=== PATIENT | female | born 1960 | race Caucasian/White ===

== ENCOUNTER → 2016-08-09 | Outpatient (CLI) | payer BC ==
[2016-08-09 09:13] LABS: Cholesterol 142 mg/dL (<200); HDL Cholesterol 62 mg/dL (40-60); Triglycerides 118 mg/dL (<150)
== END | disposition home or self-care (01) ==
LOC: LABWHC1 08:42
PROVIDERS: ATTEND Internal Medicine Cardiovascular Disease
DX: E78.5 Hyperlipidemia, unspecified (principal)
CPT/HCPCS: 36415; 80061

== ENCOUNTER → 2018-12-07 | Outpatient (CLI) | payer BC ==
--- NOTE | 2018-12-07 14:49 | US ---
EXAMINATION TYPE: US axilla RT DATE OF EXAM: 12/07/2018 COMPARISON: NONE CLINICAL HISTORY: R59.9 ENLARGED LYMPH NODES. TECHNIQUE/FINDINGS: Targeted right axillary ultrasound was performed in the area of palpable abnormality. Grayscale and c olor Doppler flow were utilized. No enlarged lymph nodes, no solid or masses seen. No soft tissue jerry ma. IMPRESSION: No right axillary adenopathy. No sonographic or to the patient's palpable abnormality.
--- NOTE | 2018-12-07 14:51 | US ---
EXAMINATION TYPE: US groin RT DATE OF EXAM: 12/07/2018 COMPARISON: NONE CLINICAL HISTORY: R10.30 Lower abd pain. Possible small hernia in right groin. This is appreciated on the Valsalva maneuver only with no adjac ent protruding bowel. Lymph node measuring 1.2cm also noted. This is morphologically normal with a fatty hilum and no corti daria thickening. This is also nonenlarged. IMPRESSION: There appears to be a very small focal right inguinal hernia on Valsalva maneuver. No pr otruding bowel is seen.
== END | disposition home or self-care (01) ==
LOC: RADUSWWP 13:28
PROVIDERS: ATTEND Family Medicine
DX: K40.90 Unilateral inguinal hernia, without obstruction or gangrene, not specified as recurrent (principal); R10.30 Lower abdominal pain, unspecified; R59.9 Enlarged lymph nodes, unspecified

== ENCOUNTER → 2019-12-03 | Outpatient (CLI) | payer BC ==
--- NOTE | 2019-12-03 16:28 | CT ---
EXAMINATION TYPE: CT abdomen pelvis w con DATE OF EXAM: 12/03/2019 COMPARISON: None HISTORY: Fecal urgency and abdominal distention. CT DLP: 542.3 mGycm CONTRAST: CT scan of the abdomen and pelvis is performed with Oral Contrast and with IV Contrast, patient injec iona with 100ml mL of Isovue 300. FINDINGS: LUNG BASES-: No visible nodule. No infiltrate. LIVER/GB: No calcified gallstones. No space occupying hepatic lesion. Biliary tree is of normal ca liber. PANCREAS: No inflammation. No distinct mass. SPLEEN: No splenic enlargement. No lesion seen. ADRENALS: No nodule. No thickening. KIDNEYS/BLADDER: No hydronephrosis. No nephrolithiasis. No distinct renal mass. Urinary bladder g rossly unremarkable. BOWEL: Normal appendix. Normal bowel caliber. No inflammation. GENITAL ORGANS: No gross abnormality. LYMPH NODES: No greater than 1cm abdominal or pelvic lymph nodes are appreciated. AORTA: No significant abnormality. OSSEOUS STRUCTURES: No significant abnormality is seen. OTHER: No significant additional abnormality is seen. IMPRESSION: 1. No significant abnormality to account for the patient's symptoms.
== END | disposition home or self-care (01) ==
LOC: RADCTMAIN 14:13
PROVIDERS: ATTEND Family Medicine
DX: K56.7 Ileus, unspecified (principal); R15.2 Fecal urgency
CPT/HCPCS: 74177; Q9967

== ENCOUNTER → 2022-01-03 | Outpatient (CLI) | payer BC ==
[2022-01-03 11:43] LABS: INR 1.1 (<1.2); Partial Thromboplastin Time 25.1 sec (22.0-30.0); Prothrombin Time 11.7 sec (9.0-12.0)
[2022-01-03 11:47] LABS: Appearance,Urine Clear (Clear); Bilirubin,Urine Negative (Negative); Blood,Urine Negative (Negative); Color,Urine Yellow; Glucose,Urine (UA) Negative (Negative); Hyaline Casts,Urine 3 /lpf (0-2); Ketones,Urine Negative (Negative); Leukocyte Esterase,Urine Small (Negative); Mucus,Urine Few /hpf; Nitrite,Urine Negative (Negative); Protein,Urine Trace (Negative); RBC,Urine 1 /hpf (0-5); Specific Gravity,Urine 1.031 (1.001-1.035); Squamous Epithelial Cell,Urine 3 /hpf (0-4); WBC,Urine 1 /hpf (0-5)
[2022-01-03 14:18] LABS: HGB 13.8 g/dL (12.0-15.0); MCH 29.6 pg (27.0-32.0); MCHC 31.4 g/dL (32.0-37.0); MCV 94.4 fL (80.0-97.0); Mean Platelet Volume 11.1 fL (9.5-12.2); NRBC Per 100 WBC 0 /100 WBCS (0.0-0.0); Platelet Count 295 X 10*3/uL (140-440); RBC 4.66 X 10*6/uL (4.10-5.20); RDW 12.4 % (11.5-14.5); WBC 5.82 X 10*3/uL (4.50-10.00)
[2022-01-03 14:19] LABS: African American GFR (CKD) 80.9 (60.0-200.0); Albumin 4.3 g/dL (3.8-4.9); Albumin/Globulin Ratio 1.43 (1.60-3.17); Anion Gap 9.4 mmol/L (10.00-18.00); BUN/Creat Ratio 16.63 Ratio (12.00-20.00); Calcium 9.5 mg/dL (8.7-10.3); Carbon Dioxide 26.1 mmol/L (20.0-27.5); Non-African American GFR(CKD) 69.8 (60.0-200.0); Potassium 4.9 mmol/L (3.5-5.5); Total Bilirubin 0.4 mg/dL (0.30-1.20); Total Protein 7.4 g/dL (6.2-8.2)
== END | disposition home or self-care (01) ==
LOC: LABPAT 10:24
PROVIDERS: ATTEND Orthopaedic Surgery
DX: Z01.812 Encounter for preprocedural laboratory examination (principal)
CPT/HCPCS: 36415; 80053; 81001; 85027; 85610; 85730; 87070

== ENCOUNTER 2022-01-15 09:57 | Observation (INO) | payer BC ==
[~2022-01-15 09:57] MED LIST: ACETAMINOPHEN TAB 500 MG TAB PO PRN; DEXAMETHASONE SOD PHOSPHATE 4 MG/ML 1 ML VIAL IV ONE; GABAPENTIN 300 MG CAP PO PRN; HYDROmorphone 0.5 MG/0.5 ML SYRINGE IVP PRN; LIDOCAINE 1% (10MG/ML) FOR IV START INTRADERMA PRN; MELOXICAM 7.5 MG TAB PO PRN; MIDAZOLAM 2 MG/2 ML VIAL IV PRN; ONDANSETRON 4 MG/2 ML VIAL IVP ONE; TRANEXAMIC ACID IN NACL,ISO-OS 1,000 MG in SALINE 1 100ML.BAG IVPB PRN
[2022-01-15] MEDS: LACTATED RINGERS 1,000 ML IV SCH (10:14)
[2022-01-15] MEDS ORDERED: ONDANSETRON 4 MG/2 ML VIAL IVP PRN (10:36)
[2022-01-15] MEDS ORDERED: hydrOXYzine pamoate 25 MG CAP PO PRN (10:36)
[2022-01-15] MEDS ORDERED: diazePAM 5 MG TAB PO PRN (10:36)
[2022-01-15] MEDS ORDERED: MAGNESIUM HYDROXIDE 2,400 MG/10 ML CUP PO PRN (10:36)
[2022-01-15] MEDS ORDERED: HYDROmorphone 0.5 MG/0.5 ML SYRINGE IVP PRN ×2 (10:36)
[2022-01-15] MEDS ORDERED: ACETAMINOPHEN TAB 325 MG TAB PO PRN (10:36)
[2022-01-15] MEDS ORDERED: NALOXONE 0.4 MG/ML 1 ML VIAL IV PRN (10:36)
[2022-01-15] MEDS ORDERED: TEMAZEPAM 15 MG CAP PO PRN (10:36)
[2022-01-15] MEDS ORDERED: HYDROcodone/APAP 5-325MG 1 EACH TAB PO PRN (10:36)
[2022-01-15] MEDS ORDERED: GLYCOPYRROLATE 0.2 MG/ML 2 ML VIAL ONE (10:51)
[2022-01-15] MEDS ORDERED: MIDAZOLAM 2 MG/2 ML VIAL ONE (10:51)
[2022-01-15] MEDS ORDERED: PROPOFOL 10 MG/ML 20 ML VIAL IV ONE (10:51)
[2022-01-15] MEDS ORDERED: TRANEXAMIC ACID IN NACL,ISO-OS 1,000 MG/100 ML BAG ONE (10:51)
[2022-01-15] MEDS ORDERED: fentaNYL (PF) 50 MCG/ML 2 ML AMP ONE (10:51)
[2022-01-15] MEDS ORDERED: PHENYLEPHRINE-0.9% NACL SYG 1,000 MCG/10 ML SYRINGE ONE (10:51)
[2022-01-15] MEDS ORDERED: ceFAZolin 1,000 MG in SODIUM CHLORIDE 0.9% 1,000 ML IRRIGATION ONE (10:55)
[2022-01-15] MEDS ORDERED: ROPIVACAINE 5 MG/ML 30 ML VIAL MISCELLANE ONE ×2 (11:35→12:30)
--- NOTE | 2022-01-15 12:41 | P.OP ---
Date of Procedure: 01/15/22 Preoperative Diagnosis: Severe osteoarthritis right hip Postoperative Diagnosis: Severe osteoarthritis right hip Procedure(s) Performed: Right total hip arthroplasty with a direct anterior approach Implants: [employer] Polarstem standard size 0 [employer] R3, 3 hole hemispherical acetabular shell, 48 mm [employer] Reflection 6.5 mm cancellus screw, 20 mm 2, 25 mm [employer] R3, XLPE 20 acetabular liner [employer] Oxinium femoral head 32 m, +0 All components were press-fit. The articulation is Oxinium on polyethylene. Anesthesia: spinal Surgeon: Sohail Ordonez Visual Education Teacher #1: Star Monteiro Estimated Blood Loss (ml): 300 Pathology: other (Femoral head) Condition: stable Disposition: PACU Indications for Procedure: After failure of conservative treatment we discussed the surgical and non surgical treatment options at length. Patient wishes to proceed with a total hip arthroplasty with a direct anterior approach. Complications specific to this procedure were discussed at length, including but not limited to infection, leg length discrepancy, dislocation, nerve injury, and fracture. Covid-19 was also discussed at length with the patient, and they are aware of the current policies and procedures. The patient was given the option of delaying surgery, but they elect to proceed knowing these risks. Patient is aware of all these complications and informed consent was obtained Operative Findings: The operative findings are consistent with severe osteoarthritis of the right hip Description of Procedure: Patient was seen and evaluated in the preoperative area and the consent was reviewed. The operative site was marked with a skin marker. The patient was then brought to the operating room and given preoperative antibiotics intravenously. 1 g of Tranexamic acid was also given intravenously. A spinal anesthetic was administered by the anesthesia department. The patient was then placed on the Blanchard table with the bony prominences well-padded. The hip area was then prepped with a ChloraPrep solution and draped in the usual sterile fashion. A universal timeout was then performed, which confirmed the patient's name, surgical site, ALLERGIES, and procedure being performed on the consent. Next the incision site was located at 1 cm distal and 2 cm lateral to the anterior superior iliac spine. The skin and subcutaneous tissues were sharply incised. Incision was carefully dissected down to the fascia overlying the tensor fascia mohsen muscle. This fascia was then incised in line with the incision. Care was taken to stay laterally in order to avoid injuring the lateral femoral cutaneous nerve. Next, using blunt finger dissection, the tensor fascia mohsen muscle was dissected off its investing fascia. The muscle was then carefully retracted laterally with a cobra retractor over the lateral neck of the femur. Next, the circumflex vessels were identified and cauterized using the AquaMantis device. The anterior hip capsule was then exposed. The capsule was then opened and an inverted T fashion. Cobra retractors were then placed intracapsularly. The retractors were maintained intracapsular throughout the procedure. The proximal femur was then visualized. Fluoroscopic x-rays were then taken in order to evaluate the preoperative leg lengths. A small amount of traction was placed on the leg. The femoral neck was then osteotomized at the appropriate level above the lesser trochanter. A small wedge of bone was then removed from the remaining femoral head. Next, using a corkscrew the femoral head was removed from the acetabulum. On gross visual inspection, the femoral head had complete loss of articular cartilage and multiple periarticular osteophytes. The femoral head was then measured. Attention was then turned to the acetabulum. The acetabulum was exposed and any remaining labrum was excised. Sequential reaming of the acetabulum was performed using fluoroscopic guidance until there was a good bed of bleeding cancellus bone. When the appropriate size was reached, a trial was then placed. The position and fit of the trial was checked with fluoroscopy. The trial was then removed. Then, using fluoroscopic guidance, the final implant was impacted at 20 of anteversion and 40 of abduction, and fully seated in the acetabulum. 2 screws were then placed in the acetabulum. Again fluoroscopy was used to check position of the screws. Next, the liner was then impacted, with a 20 elevated liner located in the anterior superior quadrant. Component locking was confirmed. Attention was then directed to the femur. With the aid of the Blanchard table, the femur was externally rotated to approximately 130, extended, and adducted under the opposite leg. A side hook was then placed under the proximal femur, and the side hook elevator was used to elevate the proximal femur while releasing the capsule. Retractors were then placed. A capsular release was performed, as well as a release of the conjoined tendon, which afforded excellent visualization of the proximal femur. Next, a box osteotome was used to lateralize the proximal femur. A reroller hand was then used to locate the femoral canal. Sequential broaching was then performed with appropriate size which afforded excellent fixation in the proximal femur. A trial was then placed with appropriate head and neck, and the hip was gently reduced with the aid of the Blanchard table. Fluoroscopy was then used to check position of the components, as well as to ensure equal leg lengths. The hip was then gently dislocated and the trials were then removed. Final implants were then impacted and the hip was again reduced. Final fluoroscopic x-rays confirmed that the components were in anatomic position, as well as equal leg lengths. The hip was also taken through range of motion, and found to be stable. The hip was then copiously irrigated with antibiotic solution with pulsatile lavage. The hip was then irrigated with Irrisept solution. The soft tissues were then injected with a ropivacaine solution. A second dose of 1 g of Tranexamic acid was also given intravenously. The fascia was then closed with 2-0 strata fix suture. The subcutaneous tissue was closed with 3-0 Vicryl. The subcuticular tissue was closed with 3-0 strata fix suture. The skin was then closed with Exofin skin glue. After the glue and dried, and Optifoam silver impregnated dressing was applied. The patient was then transferred to the recovery room in stable condition. The physician assistant surgery INES Allan was required due to the complexity of surgery, and the need for skilled surgical lead for positioning, draping, exposure, retraction, and closure of the wound.
[2022-01-15] MEDS ORDERED: LACTATED RINGERS 1,000 ML IV ONE (12:51)
--- NOTE | 2022-01-15 13:36 | XR ---
EXAMINATION TYPE: XR Hip Limited RT DATE OF EXAM: 01/15/2022 1:20 PM INDICATION: Patient age:Female; 61 years old; Reason for study: Status post hip surgery, assess surgical alignment; COMPARISON: None. TECHNIQUE: The right hip was examined in the frontal projections FINDINGS: Post right arthroplasty changes, hardware is intact, alignment is appropriate. No evidence of fracture. Postoperative changes soft tissue. No evidence of any acute osseous pathology or joint d islocation. IMPRESSION: Total hip arthroplasty with hardware intact and in appropriate alignment. No acute fracture.
--- NOTE | 2022-01-15 13:45 | FL ---
Fluoroscopy HISTORY: Anterior hip placement 53 seconds fluoroscopy time supplied to the referring clinician. 2 intraoperative C-arm images docum ent the procedure. See dictated report from orthopedic surgery.
[2022-01-15] MEDS ORDERED: NITROGLYCERIN SL TABS 0.4 MG TAB SUBLINGUAL PRN (14:21)
[2022-01-15] MEDS ORDERED: ZOLPIDEM 5 MG TAB PO PRN (14:21)
[2022-01-15] MEDS: MULTIVITAMINS, THERA 1 EACH TAB PO SCH (16:31)
[2022-01-15] MEDS: HYDROcodone/APAP 10-325MG 1 EACH TAB PO PRN ×2 (16:52→22:29)
[2022-01-15] MEDS: carvediloL 3.125 MG TAB PO SCH (16:54)
[2022-01-15] MEDS: HYDROmorphone 0.5 MG/0.5 ML SYRINGE IVP PRN (17:56)
[2022-01-15] MEDS: ASPIRIN 81 MG PO SCH (19:54)
[2022-01-15] MEDS: clonazePAM 1 MG TAB PO SCH (19:54)
[2022-01-15] MEDS ORDERED: SENNOSIDES-DOCUSATE SODIUM 1 EACH TAB PO SCH (21:00)
[2022-01-16] MEDS: HYDROmorphone 0.5 MG/0.5 ML SYRINGE IVP PRN (00:10)
--- NOTE | 2022-01-16 00:19 | CONS ---
CONSULTATION This consult is regarding CAD and other medical issues HISTORY OF PRESENT ILLNESS: A 61-year-old woman with past medical history of CAD stent, hypertension, hyperlipidemia, being followed by Dr. Page and previously underwent right total knee joint arthroplasty. The patient apparently accidentally caused right subconjunctival hemorrhage while removing the makeup on Friday. There is some minimal hemorrhage, which is stable and getting better according to her. There is no history of any fever, rigors, or chills at this time. PAST MEDICAL HISTORY: Reviewed and includes hypertension, hyperlipidemia, CAD, stent. HOME MEDICATIONS: Reviewed include Coreg, dose and rest of the medications are noted. ALLERGIES: SULFA. FAMILY HISTORY: History of myocardial infarction. SOCIAL HISTORY: No history of smoking, or occasional alcohol. REVIEW OF SYSTEMS: A 14-point review of systems is negative except as mentioned earlier. PHYSICAL EXAMINATION: VITAL SIGNS: Pulse is 56. Blood pressure 100/60, respirations 16. HEENT: Conjunctivae normal. NECK: No jugular venous distention. No carotid bruit. CARDIOVASCULAR: S1, S2 muffled. RESPIRATIONS: Breath sounds diminished at the bases. No rhonchi, no rales. ABDOMEN: Soft, nontender. LEGS: Status post surgery. NERVOUS SYSTEM: No focal deficits. LABS: Preop labs are reviewed. ASSESSMENT: 1. Status post right total hip joint arthroplasty. 2. Hypertension. 3. Hyperlipidemia. 4. Coronary artery disease, stent. 5. Multiple medical issues. 6. Minimal right subconjunctival hemorrhage. RECOMMENDATIONS: This 61-year-old woman presented, multiple medical issues. At this time, I recommended resuming the home medications and watch the subconjunctival hemorrhage for any evolution. Otherwise, continue with DVT prophylaxis, continue with the rest of medications. We will repeat labs tomorrow. The patient may be asked to follow up with Dr. Page and Cardiology closely after discharge. MMODL / IJN: [id number] / [facility]
[2022-01-16 02:14] VITALS: RESP 17
[2022-01-16] MEDS: LACTATED RINGERS 1,000 ML IV SCH (04:54)
[2022-01-16] MEDS ORDERED: LEVOTHYROXINE 100 MCG TAB PO SCH (06:30)
[2022-01-16 08:28] VITALS: BP 96/64; PULSE 86; TEMP 98.9
[2022-01-16] MEDS: clonazePAM 1 MG TAB PO SCH (08:49)
[2022-01-16] MEDS: HYDROcodone/APAP 10-325MG 1 EACH TAB PO PRN (08:49)
[2022-01-16] MEDS: ASPIRIN 81 MG PO SCH (08:49)
[2022-01-16] MEDS: carvediloL 3.125 MG TAB PO SCH (08:49)
[2022-01-16] MEDS: MULTIVITAMINS, THERA 1 EACH TAB PO SCH (08:49)
[2022-01-16] MEDS ORDERED: ATORVASTATIN 40 MG TAB PO SCH (09:00)
[2022-01-16] MEDS ORDERED: DESVENLAFAXINE SUCCINATE 50 MG TAB.ER.24H PO SCH (09:00)
[2022-01-16] MEDS ORDERED: EZETIMIBE 10 MG TAB PO SCH (09:00)
[2022-01-16 09:06] LABS: Basophils # (A) 0.03 X 10*3/uL (0.00-0.10); Basophils % (A) 0.3 %; Eosinophils # (A) 0 X 10*3/uL (0.04-0.35); Eosinophils % (A) 0 %; HGB 10.7 g/dL (12.0-15.0); Immature Grans, Automated 0.4 %; Lymphocytes # (A) 1.57 X 10*3/uL (0.90-5.00); Lymphocytes % (A) 14.4 %; MCH 30.4 pg (27.0-32.0); MCHC 32.4 g/dL (32.0-37.0); MCV 93.8 fL (80.0-97.0); Mean Platelet Volume 10.9 fL (9.5-12.2); Monocytes # (A) 0.87 X 10*3/uL (0.20-1.00); NRBC Per 100 WBC 0 /100 WBCS (0.0-0.0); Neutrophils # (A) 8.42 X 10*3/uL (1.80-7.70); Neutrophils % (A) 76.9 %; Platelet Count 253 X 10*3/uL (140-440); RBC 3.52 X 10*6/uL (4.10-5.20); RDW 12.7 % (11.5-14.5); WBC 10.93 X 10*3/uL (4.50-10.00)
[2022-01-16 09:23] LABS: African American GFR (CKD) 93.5 (60.0-200.0); BUN/Creat Ratio 14.75 Ratio (12.00-20.00); Blood Urea Nitrogen 11.8 mg/dL (9.0-27.0); Calcium 8.7 mg/dL (8.7-10.3); Non-African American GFR(CKD) 80.7 (60.0-200.0); Potassium 4.5 mmol/L (3.5-5.5)
--- NOTE | 2022-01-16 11:48 | P.DS ---
Providers Date of admission: 01/16/22 01:23 Expected date of discharge: 01/16/22 Attending physician: Sohail Ordonez Consults: 01/15/22 10:36 Consult Physician Routine Consulting Provider: Vinod Ontiveros Consult Reason/Comments: post op medical management Do you want consulting provider notified?: Yes Primary care physician: Ramila Page - Discharge Diagnosis(es) (1) S/P total right hip arthroplasty Patient was admitted to the OR on 01/15/22 to undergo a right total hip arthroplasty. She had failed conservative measures as an outpatient and desired to proceed with elective surgery after given informed consent. She underwent the above procedure which she tolerated well without complication. Postoperative hospital course has remained without complication. On day of discharge she is afebrile, vital signs stable, labs within acceptable ranges, tolerating by mouth meds and diet, voiding without difficulty, positive flatus, denies abdominal pain or calf pain, pain is controlled on oral pain medication and has no new complaints. Wound is benign, neurovascular status is intact, calf is soft and nontender, abdomen soft and nontender. Review of systems is negative for numbness, tingling, fever, chills, chest pain, shortness of breath, nausea, vomiting, dizziness, headaches, slurred speech or other. Status: Acute Priority: Medium Procedures: Righ SOPHIE Patient Condition at Discharge: Good Plan - Discharge Summary Discharge Rx Participant: Yes New Discharge Prescriptions: New HYDROcodone/APAP 10-325MG [Melvin 10-325] 1 tab PO Q4HR PRN #42 tab PRN Reason: Pain Ondansetron [Zofran] 4 mg PO Q8HR PRN #21 tab PRN Reason: Nausea Aspirin [Adult Low Dose Aspirin EC] 81 mg PO BID #60 tab Docusate [Colace] 100 mg PO BID #60 capsule No Action Levothyroxine Sodium [Synthroid] 100 mcg PO DAILY Ezetimibe/Simvastatin [Vytorin 10-80 mg Tablet] 1 tab PO DAILY Zolpidem [Ambien] 10 mg PO HS PRN PRN Reason: Insomnia carvediloL [Coreg] 3.125 mg PO BID-W/MEALS #60 tab Nitroglycerin Sl Tabs [Nitrostat] 0.4 mg SUBLINGUAL Q5M PRN #30 tab PRN Reason: Chest Pain Alirocumab [Praluent Syringe] 75 mg SQ [id number] Aspirin 81 mg PO DAILY Desvenlafaxine Succinate [Pristiq ER] 50 mg PO DAILY clonazePAM [KlonoPIN] 1 mg PO BID Discharge Medication List Ezetimibe/Simvastatin [Vytorin 10-80 mg Tablet] 1 tab PO DAILY 01/07/14 [History] Levothyroxine Sodium [Synthroid] 100 mcg PO DAILY 01/07/14 [History] Zolpidem [Ambien] 10 mg PO HS PRN 07/16/15 [History] Nitroglycerin Sl Tabs [Nitrostat] 0.4 mg SUBLINGUAL Q5M PRN #30 tab 07/19/15 [Rx] carvediloL [Coreg] 3.125 mg PO BID-W/MEALS #60 tab 07/19/15 [Rx] Alirocumab [Praluent Syringe] 75 mg SQ [id number] 10/05/15 [History] Aspirin 81 mg PO DAILY 01/10/22 [History] Desvenlafaxine Succinate [Pristiq ER] 50 mg PO DAILY 01/10/22 [History] clonazePAM [KlonoPIN] 1 mg PO BID 01/10/22 [History] Aspirin [Adult Low Dose Aspirin EC] 81 mg PO BID #60 tab 01/16/22 [Rx] Docusate [Colace] 100 mg PO BID #60 capsule 01/16/22 [Rx] HYDROcodone/APAP 10-325MG [Melvin 10-325] 1 tab PO Q4HR PRN #42 tab 01/16/22 [Rx] Ondansetron [Zofran] 4 mg PO Q8HR PRN #21 tab 01/16/22 [Rx] Follow up Appointment(s)/Referral(s): Kim Coleman NPC [Nurse Practitioner] - 01/30/22 1:15 pm Ramila Page DO [Primary Care Provider] - 01/23/22 1:40 pm [facility], [NON-STAFF] - 1-2 Days ([facility] will call you to schedule your in home physical therapy visits. ) Patient Instructions/Handouts: Anterior Hip Replacement (DC) Activity/Diet/Wound Care/Special Instructions: Weight bear as tolerated May shower after 3 days if no bleeding Keep wound clean and dry Take meds as directed F/U with Dr. Ordonez in office Discharge Disposition: HOME WITH HOME HEALTH SERVICES
--- NOTE | 2022-01-16 18:41 | P.PN ---
Subjective Progress Note Date: 01/16/22 This is a pleasant 61-year-old female who was recently admitted under orthopedic surgical services and underwent right total hip arthroplasty and is sitting up in the chair. Patient reports to feeling well and pain is manageable. Patient has had blood pressures of 96 systolic this am and discussed with the patient about monitoring blood pressure at home and continue holding blood pressure medications unless blood pressure increases. Encouraged the patient to follow up with dr. Blum this week. Patient is afebrile and denies chest pain or shortness of breath. Patient reports to passing gas with no bowel movement as of yet. Voiding with no difficulty this am. [facility] and will be going home today. Review of systems: Constitutional: No reports of fatigue, fever, or chills Cardiovascular: No reports of chest pain or palpitations Respiratory: No reports of shortness of breath or cough GI: No reports of nausea, vomiting, or diarrhea, reports passing gas and did not have a bowel movement. : No reports of dysuria or retention Neurovascular: No reports of weakness or numbness, reports some right hip discomfort All medications have been reviewed PHYSICAL EXAMINATION: GENERAL: The patient is alert and oriented x4, Well developed, well nourished. HEENT: Pupils are round and equally reacting to light. EOMI. no scleral icterus. No conjunctival pallor. Normocephalic, atraumatic. No pharyngeal erythema. No thyromegaly. CARDIOVASCULAR: S1 and S2 muffled PULMONARY: diminished breath sounds bilaterally with no wheezing or rhonchi noted. ABDOMEN: soft. non tender on exam. obese. Normoactive bowel sounds. No palpable organomegaly. Abdominal binder noted MUSCULOSKELETAL: No joint swelling or deformity. EXTREMITIES: No cyanosis, clubbing, or pedal edema. right hip surgical dressing is dry and intact. NEUROLOGICAL: Gross neurological examination did not reveal any focal deficits. SKIN: No rashes. Assessment: Status post right total hip joint arthoplasty hypertension hyperlipidemia coronary artery disease, stent multiple medical issues minimal right subconjunctival hemorrhage GI prophylaxis DVT prophylaxis Full code Plan: Recommend to continue with current medications and management per orthopedic services. Patient is status post right total hip joint arthroplasty and feels is doing well. Plan is for discharge today. Patient normally with hypertension and currently normotensive and on the lower side. Recommended monitoring blood pressures closely and hold home dose for the next 2 days unless becoming elevated and follow up with pcp on discharge. Patient follows with Dr. Blum. Encouraged incentive spirometer use and also to continue using at least 10 times every hour while awake even at home. Patient denies dizziness or lightheadedness. Encouraged the patient follow-up with primary care provider in the outpatient setting as well. We will continue to follow with orthopedic surgery during hospitalization. Thank you for this consultation. The impression and plan of care has been dictated by Nadja Dewey, nurse practitioner as directed. Dr. Weston MD I have performed a history and examination and MDM of this patient, discussed the same with the dictator, and agree with the dictator's assessment and plan as written ,documented as a scribe. Based on total visit time, I have performed more than 50% of the visit. Any additional findings or plans will be noted. Objective - Vital Signs Vital signs: Vital Signs Temp 98.9 F 01/16/22 08:00 Pulse 86 01/16/22 08:00 Resp 17 01/16/22 02:00 BP 96/64 01/16/22 08:00 Pulse Ox 95 01/16/22 08:00 FiO2 Intake & Output 01/15/22 01/16/22 01/16/22 18:59 06:59 18:59 Intake Total 1731 Output Total 300 350 Balance 1431 -350 Weight 66 kg Intake: IV 1251 Oral 480 Output: Urine 350 Estimated Blood Loss 300 Other: Voiding Method Toilet # Voids 0 2 - Labs CBC & Chem 7: 01/16/22 06:14 01/16/22 06:14 Labs: Abnormal Lab Results - Last 24 Hours (Table) 01/16/22 01/16/22 Range/Units 06:14 06:14 WBC 10.93 H (4.50-10.00) X 10*3/uL RBC 3.52 L (4.10-5.20) X 10*6/uL Hgb 10.7 L (12.0-15.0) g/dL Hct 33.0 L (37.2-46.3) % Neutrophils # 8.42 H (1.80-7.70) X 10*3/uL Eosinophils # 0 L (0.04-0.35) X 10*3/uL Anion Gap 7.00 L (10.00-18.00) mmol/L Glucose 158 H (70-110) mg/dL
== END 2022-01-16 11:29 | disposition home health service (06) ==
LOC: OR 09:57 → 4SSUR 12:35 → OR 01-16 01:23 → 4SSUR 01-16 01:23
PROVIDERS: ADMIT Orthopaedic Surgery; ATTEND Orthopaedic Surgery
DX: M16.11 Unilateral primary osteoarthritis, right hip (principal); I10 Essential (primary) hypertension; E78.5 Hyperlipidemia, unspecified; I25.10 Atherosclerotic heart disease of native coronary artery without angina pectoris; Z95.5 Presence of coronary angioplasty implant and graft; H11.31 Conjunctival hemorrhage, right eye; Z82.49 Family history of ischemic heart disease and other diseases of the circulatory system; Z79.82 Long term (current) use of aspirin; Z79.890 Hormone replacement therapy; Z79.899 Other long term (current) drug therapy; Z88.2 Allergy status to sulfonamides
CPT/HCPCS: 27130; 97161; 97166; 86900; 86901; 80048; 85025; 86850; 88300; 73501; G0378; C1776; J2250; J1100; J0690 ×3; J2405; J3010; J2795; J2370; J2704; J1170 ×2

== ENCOUNTER → 2022-04-01 | Outpatient (CLI) | payer BC ==
--- NOTE | 2022-04-01 11:40 | US ---
EXAMINATION TYPE: US carotid duplex BILAT DATE OF EXAM: 04/01/2022 COMPARISON: NONE CLINICAL HISTORY: H93.A1 PULSATILE TINNITUS, RIGHT EAR. TECHNIQUE: Carotid duplex ultrasound examination. Indirect Doppler criteria was utilized. FINDINGS: EXAM MEASUREMENTS: RIGHT: Peak Systolic Velocity (PSV) cm/sec ----- Right CCA: 82.3 ----- Right ICA: 78.3 ----- Right ECA: 97.7 ICA/CCA ratio: 1.0 RIGHT: End Diastole cm/sec ----- Right CCA: 29.9 ----- Right ICA: 26.0 ----- Right ECA: 26.3 LEFT: Peak Systolic Velocity (PSV) cm/sec ----- Left CCA: 71.3 ----- Left ICA: 80.1 ----- Left ECA: 73.9 ICA/CCA ratio: 1.1 LEFT: End Diastole cm/sec ----- Left CCA: 29.0 ----- Left ICA: 43.9 ----- Left ECA: 20.5 VERTEBRALS (direction of flow): Right Vertebral: Antegrade Left Vertebral: Antegrade Rhythm: Normal PRODUCTION DEPARTMENT SUPERVISOR NOTES: No significant stenosis seen IMPRESSION: No ultrasound evidence of hemodynamically significant stenosis. Criteria for Assigning % of Stenosis / Diameter reduction (Estimation based on the indirect measurements of the internal carotid artery velocities (ICA PSV). 1. Normal (no stenosis)=ICA PSV < 125 cm/s: ratio < 2.0: ICA EDV<40 cm/s. 2. Less than 50% stenosis=ICA PSV < 125 cm/s: ratio < 2.0: ICA EDV<40 cm/s. 3. 50 to 69% stenosis=ICA PSV of 125 to 230 cm/s: ration 2.0 ? 4.0: ICA EDV 40-100 cm/s. 4. Greater than 70% stenosis to near occlusion= ICA PSV > 230 cm/s: ratio > 4.0: ICA EDV > 100 cm/s. 5. Near occlusion= ICA PSV velocities may be low or undetectable: variable ratio and ICA EDV. 6. Total occlusion=unable to detect flow.
== END | disposition home or self-care (01) ==
LOC: RADUSWWP 10:55
PROVIDERS: ATTEND Family Medicine
DX: H93.A1 Pulsatile tinnitus, right ear (principal)
CPT/HCPCS: 93880

== ENCOUNTER → 2022-04-02 | Outpatient (CLI) | payer BC, OTHER | END | disposition home or self-care (01) | LOC: RADXRMAIN 17:31 | PROVIDERS: ATTEND Emergency Medicine | DX: Z53.9 Procedure and treatment not carried out, unspecified reason (principal) ==

== ENCOUNTER → 2022-04-02 | Outpatient (CLI) | payer OTHER ==
--- NOTE | 2022-04-02 17:51 | CT ---
EXAMINATION TYPE: CT brain cspine wo con CT DLP: 1740 mGycm, Automated exposure control for dose reduction was used. DATE OF EXAM: 04/02/2022 5:36 PM COMPARISON: None. CLINICAL INDICATION:Female, 61 years old with history of S00.83XXA CONTUSION OF OTHER PART OF HEAD, S 13.4XX; Fall TECHNIQUE: Brain: Multiple axial CT images of the brain were obtained without IV contrast. Cspine: Axial CT images from the skull base to the inferior aspect of T2 we obtained without intraven ous contrast. Coronal and sagittal reformatted images were also reviewed. FINDINGS: Brain: Extra-axial spaces: No abnormal extra-axial fluid collections. Ventricular system: Within normal limits Cerebral parenchyma: No acute intraparenchymal hemorrhage or mass effect. The awad-white junction is well differentiated. Cerebellum: Unremarkable. Mass effect: No evidence of midline shift. Intracranial vasculature: unremarkable Soft tissues: Normal. Calvarium/osseous structures: No depressed skull fracture. Paranasal sinuses and mastoid air cells: Clear. Visualized orbits: Orbital contents are intact. Cervical spine: Fracture: None. Osseous structures: Multilevel degenerative disc disease changes with endplate spurring and disc oste ophyte complex's. Vertebral alignment: Within normal limits. Spinal canal/Neural Foramina: No evidence of significant spinal canal narrowing. No evidence for sign ificant neural foraminal stenosis. Neck soft tissues: Prevertebral soft tissues are within normal limits. Other: The airway is patent. The lung apices are clear. IMPRESSION: 1. No acute intracranial process. 2. No evidence of cervical spine fracture. 3. Mild multilevel degenerative disc disease.
--- NOTE | 2022-04-02 17:57 | XR ---
EXAMINATION TYPE: XR pelvis AP view, XR sacrum coccyx, XR lumbar spine 2 or 3V, XR Hip Complete RT DATE OF EXAM: 04/02/2022 5:37 PM INDICATION: Patient age:Female; 61 years old; Reason for study: S00.86XA, S13.4XXA, S30.0XXA, S70.01XA. COMPARISON: Radiograph same day TECHNIQUE: The pelvis was examined in a single projection. The coccyx was evaluated in 2 projections including frontal and lateral and tilted frontal. Lumbar spine was evaluated in frontal lateral and coned in L5-S1. Right abdomen was examined in frontal and lateral views. FINDINGS: There is no evidence of fracture or dislocation. There is no soft tissue abnormality. Ther e is right hip total hip arthroplasty with hardware in place in appropriate position. No evidence of fracture. Scattered pelvic phleboliths are present present this course of the arterial vasculature. Sacrum and coccyx appear normal alignment. No evidence of fracture. The lumbar spine is multilevel disc degeneration changes with facet joint arthropathy and osteophyte formation. IMPRESSION: 1. No evidence of fracture. 2. Multilevel disc degeneration of the spine. 3. Right hip arthroplasty changes with hardware in apparent position and intact.
== END | disposition home or self-care (01) ==
LOC: RADCTMAIN 16:22
PROVIDERS: ATTEND Emergency Medicine
DX: S00.83XA Contusion of other part of head, initial encounter (principal); S13.4XXA Sprain of ligaments of cervical spine, initial encounter; M51.36 Other intervertebral disc degeneration, lumbar region
CPT/HCPCS: 70450; 72100; 72125; 72170; 72220; 73502

== ENCOUNTER → 2022-05-13 | Outpatient (CLI) | payer OTHER ==
--- NOTE | 2022-05-13 22:59 | MR ---
EXAMINATION TYPE: MR brain wo con DATE OF EXAM: 05/13/2022 9:21 PM COMPARISON: CT brain 04/03/2022. CLINICAL INDICATION:Female, 61 years old with history of S00.83XD,S13.4XXD,S30.0XXD,S70.01XD; TECHNIQUE: Multi planar, multi sequence imaging was performed through the brain including: T1, T2, In version recovery, Diffusion weighted imaging, and gradient echo imaging. No gadolinium was given. FINDINGS: The awad-white junctions, ventricular system, and cisterns appear unremarkable. Single focus of high T2 signal seen within the left be. Midline structures show no abnormality. Diffusion-weighted imagi ng shows no evidence of restricted diffusion. The susceptibility weighted images do not reveal any ev idence for micro-hemorrhage. The bone marrow signal is within normal limits. Paranasal sinuses and mastoid air cells: No significant paranasal sinus disease. Visualized orbits: Orbital contents are intact. IMPRESSION: 1. No evidence of intracranial mass or acute/subacute infarct. 2. Single focus of nonspecific white matter changes within the left be.
== END | disposition home or self-care (01) ==
LOC: RADMRIMAIN 21:00
PROVIDERS: ATTEND Emergency Medicine
DX: S00.83XD Contusion of other part of head, subsequent encounter (principal); S13.4XXD Sprain of ligaments of cervical spine, subsequent encounter; S30.0XXD Contusion of lower back and pelvis, subsequent encounter; S70.01XD Contusion of right hip, subsequent encounter; R90.82 White matter disease, unspecified
CPT/HCPCS: 70551

== ENCOUNTER → 2023-01-22 | Day surgery (SDC) | payer BC ==
[2023-01-16 11:20] VITALS: BMI 28.5
[~2023-01-22] MED LIST changes: -ACETAMINOPHEN TAB 500 MG TAB PO PRN; -DEXAMETHASONE SOD PHOSPHATE 4 MG/ML 1 ML VIAL IV ONE; -GABAPENTIN 300 MG CAP PO PRN; -HYDROmorphone 0.5 MG/0.5 ML SYRINGE IVP PRN; +LACTATED RINGERS 1,000 ML IV ONE; +LACTATED RINGERS 1,000 ML IV SCH; -MELOXICAM 7.5 MG TAB PO PRN; -MIDAZOLAM 2 MG/2 ML VIAL IV PRN; -ONDANSETRON 4 MG/2 ML VIAL IVP ONE; +PROPOFOL 10 MG/ML 20 ML VIAL IV ONE; -TRANEXAMIC ACID IN NACL,ISO-OS 1,000 MG in SALINE 1 100ML.BAG IVPB PRN
[2023-01-22 10:25] VITALS: TEMP 97
--- NOTE | 2023-01-22 10:45 | P.PCN ---
Date of Procedure: 01/22/23 Procedure(s) Performed: BRIEF HISTORY: Patient is a 62-year-old pleasant white female scheduled for an elective colonoscopy as a part of screening for colon cancer. PROCEDURE PERFORMED: Colonoscopy. PREOPERATIVE DIAGNOSIS: Screening for colon cancer. IV sedation per Anesthesia. PROCEDURE: After informed consent was obtained, the patient, was brought into the endoscopy unit. IV sedation was administered by Anesthesia under continuous monitoring. Digital rectal examination was normal. Initially the Olympus CF-160 flexible video colonoscope was then inserted in the rectum, gradually advanced into the cecum without any difficulty. Careful examination was performed as the scope was gradually being withdrawn. Ileocecal valve and the appendiceal orifice were visualized and appeared normal. Prep was excellent. Mucosa of the cecum, ascending colon, transverse colon, descending colon, sigmoid colon, and rectum appeared normal. Scattered sigmoid diverticulosis Retroflexion was performed in the rectum and no lesions were seen. The patient tolerated the procedure well. IMPRESSION: Normal-appearing colon from rectum to cecum with no evidence of colorectal neoplasia . Scattered sigmoid diverticulosis RECOMMENDATIONS: Findings of this examination were discussed with the patient as well as a family. She was advised to have a repeat screening colonoscopy in 10 years.
[2023-01-22 10:51] VITALS: PULSE 72
[2023-01-22 11:06] VITALS: BP 109/77; RESP 16
== END ==
LOC: ORWHC2ENDO 08:58
PROVIDERS: ATTEND Internal Medicine Gastroenterology
DX: Z12.11 Encounter for screening for malignant neoplasm of colon (principal); K57.30 Diverticulosis of large intestine without perforation or abscess without bleeding; I25.2 Old myocardial infarction; I25.10 Atherosclerotic heart disease of native coronary artery without angina pectoris; E78.5 Hyperlipidemia, unspecified; E07.9 Disorder of thyroid, unspecified; Z88.5 Allergy status to narcotic agent; Z79.82 Long term (current) use of aspirin; Z79.899 Other long term (current) drug therapy; Z98.890 Other specified postprocedural states; Z79.890 Hormone replacement therapy; Z95.5 Presence of coronary angioplasty implant and graft
CPT/HCPCS: 45378; J2704

== ENCOUNTER 2023-03-27 17:17 | Observation (INO) | payer BC ==
[2023-03-27 18:00] LABS: Basophils # (A) 0.1 k/uL (0-0.2); Basophils % (A) 1 %; Eosinophils # (A) 0.2 k/uL (0-0.7); Eosinophils % (A) 3 %; HCT 41.8 % (34.0-46.0); HGB 13.7 gm/dL (11.4-16.0); Lymphocytes # (A) 2.4 k/uL (1.0-4.8); Lymphocytes % (A) 38 %; MCHC 32.9 g/dL (31.0-37.0); MCV 94.3 fL (80.0-100.0); Monocytes # (A) 0.3 k/uL (0-1.0); Monocytes % (A) 5 %; Neutrophils # (A) 3.3 k/uL (1.3-7.7); Neutrophils % (A) 51 %; Platelet Count 246 k/uL (150-450); RBC 4.44 m/uL (3.80-5.40); WBC 6.3 k/uL (3.8-10.6)
[2023-03-27 18:13] LABS: ALT 26 U/L (4-34); AST 30 U/L (14-36); African American GFR (CKD) >90 (>60 ml/min/1.73 sqM); Albumin 4.1 g/dL (3.5-5.0); Alkaline Phosphatase 82 U/L (38-126); Anion Gap 6 mmol/L; Blood Urea Nitrogen 21 mg/dL (7-17); Calcium 9.3 mg/dL (8.4-10.2); Carbon Dioxide 27 mmol/L (22-30); Chloride 105 mmol/L (98-107); Glucose 163 mg/dL (74-99); Magnesium 2.1 mg/dL (1.6-2.3); Non-African American GFR(CKD) >90 (>60 ml/min/1.73 sqM); Potassium 4.9 mmol/L (3.5-5.1); Sodium 138 mmol/L (137-145); Total Bilirubin 0.3 mg/dL (0.2-1.3)
[2023-03-27 18:14] LABS: Partial Thromboplastin Time 25.7 sec (22.0-30.0)
--- NOTE | 2023-03-27 18:28 | XR ---
EXAMINATION TYPE: XR chest 2V DATE OF EXAM: 03/27/2023 COMPARISON: None HISTORY: 62-year-old female with chest pain TECHNIQUE: PA and lateral views FINDINGS: The cardiomediastinal silhouette, aorta, and pulmonary vasculature are within normal limits. Lungs an d pleural spaces are clear. IMPRESSION: No acute cardiopulmonary process.
[2023-03-27] MEDS ORDERED: clonazePAM 1 MG TAB PO PRN (21:18)
[2023-03-27] MEDS ORDERED: NALOXONE 0.4 MG/ML 1 ML VIAL IV PRN (21:20)
[2023-03-27] MEDS ORDERED: ACETAMINOPHEN TAB 325 MG TAB PO PRN (21:20)
[2023-03-27] MEDS ORDERED: NITROGLYCERIN SL TABS 0.4 MG TAB SUBLINGUAL PRN (21:21)
[2023-03-27] MEDS ORDERED: ASPIRIN 81 MG PO STA (21:21)
--- NOTE | 2023-03-27 21:24 | ED ---
Chest Pain HPI - General Chief Complaint: Chest Pain Stated Complaint: chest pain Time Seen by Provider: 03/27/23 20:59 Source: patient Mode of arrival: wheelchair - History of Present Illness Initial Comments: 62-year-old female with history of CAD and previous CA with stent placement presenting with chief complaint of chest pain. Patient states that she had sudden pressure like pain to the left side of the chest with radiation down the arm and up the neck. She states that the pain started about 45 minutes prior to arrival. Patient had some relief after 2 nitro. She denies shortness of breath, palpitations, nausea, vomiting, abdominal pain, fever, chills, cough, headache. - Related Data Home Medications Medication Instructions Recorded Confirmed Ezetimibe/Simvastatin [Vytorin 1 tab PO DAILY 01/07/14 03/27/23 10-80 mg Tablet] Aspirin 81 mg PO DAILY 01/10/22 03/27/23 clonazePAM [KlonoPIN] 1 mg PO BID PRN 01/10/22 03/27/23 Evolocumab [Repatha Syringe] 140 mg SQ Q14D 01/16/23 03/27/23 Escitalopram [Lexapro] 10 mg PO DAILY 03/27/23 03/27/23 Levothyroxine Sodium [Synthroid] 112 mcg PO DAILY 03/27/23 03/27/23 Magnesium Oxide [Magnesium] 500 mg PO DAILY 03/27/23 03/27/23 Nitroglycerin Sl Tabs [Nitrostat] 0.4 mg SUBLINGUAL Q5M PRN 03/27/23 03/27/23 Tacrolimus [Protoptic 0.1%] 1 applic TOPICAL BID 03/27/23 03/27/23 Zolpidem Tartrate [Ambien] 10 mg PO HS PRN 03/27/23 03/27/23 Previous Rx's Medication Instructions Recorded carvediloL [Coreg] 3.125 mg PO BID-W/MEALS #60 tab 07/19/15 Allergies Allergy/AdvReac Type Severity Reaction Status Date / Time tramadol Allergy Vomiting Verified 03/27/23 22:19 Review of Systems ROS Statement: Those systems with pertinent positive or pertinent negative responses have been documented in the HPI. ROS Other: All systems not noted in ROS Statement are negative. EKG Findings - EKG Comments: EKG Findings:: Sinus rhythm ventricular rate 71. OK interval 125. QRS 92. QT 404. QTc 426. No acute changes from previous EKG Past Medical History Past Medical History: Chest Pain / Angina, Hyperlipidemia, Myocardial Infarction ([place]), Thyroid Disorder Additional Past Medical History / Comment(s): [place] 07/16/15 HAD HEART CATH with stent to LAD Last Myocardial Infarction Date:: 07/16/15 History of Any Multi-Drug Resistant Organisms: None Reported Past Surgical History: Appendectomy, Heart Catheterization With Stent, Joint Replacement, Orthopedic Surgery Additional Past Surgical History / Comment(s): ovarian cyst. tummy tuck. right hip repl. Past Anesthesia/Blood Transfusion Reactions: No Reported Reaction Date of Last Stent Placement:: 2015 Past Psychological History: Anxiety Smoking Status: Never smoker Past Alcohol Use History: None Reported Past Drug Use History: None Reported - Past Family History Father Family Medical History: Myocardial Infarction ([place]) Additional Family Medical History / Comment(s): AGE 42 FROM MASSIVE CA Mother Family Medical History: Liver Disease Additional Family Medical History / Comment(s): NON ALCOHOLIC CIRRHIOSIS OF THE LIVER, WAS D/T ACETAMINOPHEN USE General Exam Limitations: no limitations General appearance: alert, in no apparent distress Head exam: Present: atraumatic, normocephalic, normal inspection Eye exam: Present: normal appearance, EOMI Neck exam: Present: normal inspection, full ROM Respiratory exam: Present: normal lung sounds bilaterally. Absent: respiratory distress, wheezes, rales, rhonchi, stridor, chest wall tenderness Cardiovascular Exam: Present: regular rate, normal rhythm, normal heart sounds. Absent: systolic murmur, diastolic murmur, rubs, gallop, clicks Extremities exam: Absent: pedal edema Neurological exam: Present: alert, oriented X3 Psychiatric exam: Present: normal affect, normal mood Skin exam: Present: warm, dry, intact, normal color. Absent: rash Course Vital Signs 03/27/23 03/27/23 03/27/23 17:24 21:52 23:00 Temperature 97.6 F Pulse Rate 77 63 66 Respiratory 16 18 18 Rate Blood Pressure 134/89 130/80 135/97 O2 Sat by Pulse 98 98 100 Oximetry 03/28/23 00:00 Temperature Pulse Rate 66 Respiratory 18 Rate Blood Pressure 121/84 O2 Sat by Pulse 100 Oximetry Chest Pain MDM - MDM Was pt. sent in by a medical professional or institution ([facility], ARTISTIC ASSOCIATE, urgent care, hospital, or [facility]...) When possible be specific @ -No Did you speak to anyone other than the patient for history (EMS, parent, family, police, friend...)? What history was obtained from this source @ -No Did you review nursing and triage notes (agree or disagree)? Why? @ -I reviewed and agree with nursing and triage notes Were old charts reviewed (outside hosp., previous admission, EMS record, old EKG, old radiological studies, urgent care reports/EKG's, [facility] records)? Report findings @ -No old charts were reviewed Differential Diagnosis (chest pain, altered mental status, abdominal pain women, abdominal pain men, vaginal bleeding, weakness, fever, dyspnea, syncope, headache, dizziness, GI bleed, back pain, seizure, CVA, palpatations, mental health, musculoskeletal)? @ -MDM Differential Chest Pain: Stable Angina, Unstable Angina, STEMI, NSTEMI Aortic Dissection, Pneumothorax, Musculoskeletal, Esophageal Spasm GERD, Cholecystitis, Pancreatitis, Zoster This is not meant to be an all-inclusive list. EKG interpreted by me (3pts min.). @ -As above X-rays interpreted by me (1pt min.). @ -Chest x-ray shows no acute cardiopulmonary process CT interpreted by me (1pt min.). @ -None done U/S interpreted by me (1pt. min.). @ -None done What testing was considered but not performed or refused? (CT, X-rays, U/S, labs)? Why? @ -None What meds were considered but not given or refused? Why? @ -None Did you discuss the management of the patient with other professionals (professionals i.e. [facility], ARTISTIC ASSOCIATE, lab, RT, psych nurse, social security assessor, banquet waiter/waitress, teacher, small business banking officer, correctional case manager)? Give summary @ -I spoke with Dr. Gross accepted admission Was smoking cessation discussed for >3mins.? @ -No Was critical care preformed (if so, how long)? @ -No Were there social determinants of health that impacted care today? How? (Homelessness, low income, unemployed, alcoholism, drug addiction, transportation, low edu. Level, literacy, decrease access to med. care, fpc, rehab)? @ -No Was there de-escalation of care discussed even if they declined (Discuss DNR or withdrawal of care, Hospice)? DNR status @ -No What co-morbidities impacted this encounter? (DM, HTN, Smoking, COPD, CAD, Cancer, CVA, ARF, Chemo, Hep., AIDS, mental health diagnosis, sleep apnea, morbid obesity)? @ -CAD, previous CA Was patient admitted / discharged? Hospital course, mention meds given and route, prescriptions, significant lab abnormalities, going to OR and other pertinent info. @ -[id number] female presented chief complaint of chest pain. Physical exam is conducted. Lab work is grossly negative EKG shows no acute changes, chest x- ray is negative for acute process. Patient will be admitted for observation and evaluation by cardiology in the a.m. She is agreeable with this plan. I discussed this case with my attending Dr. Potter Undiagnosed new problem with uncertain prognosis? @ -No Drug Therapy requiring intensive monitoring for toxicity (Heparin, Nitro, Insulin, Cardizem)? @ -No Were any procedures done? @ -No Diagnosis/symptom? @ -Chest Pain Acute, or Chronic, or Acute on Chronic? @ -Acute Uncomplicated (without systemic symptoms) or Complicated (systemic symptoms)? @ -Complicated Side effects of treatment? @ -No Exacerbation, Progression, or Severe Exacerbation? @ -No Poses a threat to life or bodily function? How? (Chest pain, [place], CA, pneumonia, PE, COPD, DKA, ARF, appy, cholecystitis, CVA, Diverticulitis, Homicidal, Suicidal, threat to staff... and all critical care pts) @ -yes Disposition Clinical Impression: Chest pain, History of myocardial infarction Disposition: ADMITTED IP TO THIS HOSP Condition: Fair Time of Disposition: 21:24
[2023-03-27] MEDS: carvediloL 3.125 MG TAB PO SCH (21:44)
[2023-03-27] MEDS ORDERED: ZOLPIDEM 5 MG TAB PO PRN (21:52)
[2023-03-27 22:01] VITALS: RESP 18
[2023-03-28] MEDS ORDERED: EZETIMIBE 10 MG TAB PO SCH (09:00)
[2023-03-28] MEDS ORDERED: ATORVASTATIN 40 MG TAB PO SCH (09:00)
[2023-03-28] MEDS ORDERED: ASPIRIN 81 MG PO SCH (09:00)
--- NOTE | 2023-03-28 11:07 | P.CRDCN ---
History of Present Illness History of present illness: HISTORY OF PRESENT ILLNESS: This is a 62-year-old female with a past medical history significant for anxiety, hypothyroidism, hyperlipidemia, and coronary artery disease with previous stenting of the proximal LAD in 2015. Patient follows in the office with Dr. Gilman. We have been asked to see the patient in consultation for chest pain. Patient examined at the bedside. Patient states yesterday she began having chest pain while at the library. She states the pain was in the middle of her chest and went into her arm and her jaw. She states that she called her to bring her her nitro. She reports taking 2 nitro with some relief of her chest pain. She decided to come to the emergency room for further evaluation. At the time of examination this morning, she denies chest pain or pressure. She denies short of breath. Vital signs are stable. * EKG reveals sinus mechanism with T-wave inversions in lead 3. Seen on previous EKG from 2021 and 2022 in the office. * Chest xray negative for acute process * Current home cardiac medications include carvedilol 3.125 mg twice a and aspirin 81 mg daily * Most recent echocardiogram obtained in 2015 revealed ejection fraction 42%, mild TR, mild MR * Patient underwent stress echo in November 2020 revealing normal ejection fraction with no evidence of ischemia * Cardiac catheterization history: June 2015 with stenting to the proximal LAD REVIEW OF SYSTEMS: At the time of my exam: CONSTITUTIONAL: Denies fever or chills. HEENT: Denies blurred vision, vision changes, or eye pain. Denies hemoptysis CARDIOVASCULAR: Denies chest pain. Denies orthopnea. Denies PND. Denies pa lpitations RESPIRATORY: Denies shortness of breath. GASTROINTESTINAL: Denies abdominal pain. Denies nausea or vomiting. HEMATOLOGIC: Denies bleeding disorders. GENITOURINARY: Denies any blood in urine. SKIN: Denies pruitis. Denies rash. PHYSICAL EXAM: VITAL SIGNS: Reviewed. GENERAL: Well-developed in no acute distress. HEENT: Head is normocephalic. Pupils are equal, round. Sclerae anicteric. Mucous membranes of the mouth are moist. Neck supple. No JVD or thyromegaly LUNGS: Respirations even and unlabored. Lungs essentially clear to auscultation bilaterally. HEART: Regular rate and rhythm. S1 and S2 heard. ABDOMEN: Soft. Nondistended. Nontender. EXTREMITIES: Normal range of motion. No clubbing or cyanosis. Peripheral pulses intact. No lower extremity edema NEUROLOGIC: Awake and alert. Oriented x 3. ASSESSMENT: Chest pain, troponins negative 3 Coronary artery disease with previous stenting of the LAD, 2016 Hyperlipidemia Hypothyroidism Anxiety PLAN: An acute coronary event has been ruled out Resume home cardiac medications Patient will undergo stress echocardiogram today If negative, she may be discharged home from a cardiac standpoint Nurse practitioner note has been reviewed by physician. Signing provider agrees with the documented findings, assessment, and plan of care. Past Medical History Past Medical History: Chest Pain / Angina, Hyperlipidemia, Myocardial Infarction ([place]), Thyroid Disorder Additional Past Medical History / Comment(s): [place] 07/16/15 HAD HEART CATH with stent to LAD Last Myocardial Infarction Date:: 07/16/15 History of Any Multi-Drug Resistant Organisms: None Reported Past Surgical History: Appendectomy, Heart Catheterization With Stent, Joint Replacement, Orthopedic Surgery Additional Past Surgical History / Comment(s): ovarian cyst. tummy tuck. right hip repl. Past Anesthesia/Blood Transfusion Reactions: No Reported Reaction Date of Last Stent Placement:: 2015 Past Psychological History: Anxiety Smoking Status: Never smoker Past Alcohol Use History: None Reported Past Drug Use History: None Reported - Past Family History Father Family Medical History: Myocardial Infarction ([place]) Additional Family Medical History / Comment(s): AGE 42 FROM MASSIVE [place] Mother Family Medical History: Liver Disease Additional Family Medical History / Comment(s): NON ALCOHOLIC CIRRHIOSIS OF THE LIVER, WAS D/T ACETAMINOPHEN USE Medications and Allergies Home Medications Medication Instructions Recorded Confirmed Type Ezetimibe/Simvastatin [Vytorin 1 tab PO DAILY 01/07/14 03/27/23 History 10-80 mg Tablet] carvediloL [Coreg] 3.125 mg PO BID-W/MEALS #60 tab 07/19/15 03/27/23 Rx Aspirin 81 mg PO DAILY 01/10/22 03/27/23 History clonazePAM [KlonoPIN] 1 mg PO BID PRN 01/10/22 03/27/23 History Evolocumab [Repatha Syringe] 140 mg SQ Q14D 01/16/23 03/27/23 History Escitalopram [Lexapro] 10 mg PO DAILY 03/27/23 03/27/23 History Levothyroxine Sodium [Synthroid] 112 mcg PO DAILY 03/27/23 03/27/23 History Magnesium Oxide [Magnesium] 500 mg PO DAILY 03/27/23 03/27/23 History Nitroglycerin Sl Tabs [Nitrostat] 0.4 mg SUBLINGUAL Q5M PRN 03/27/23 03/27/23 History Tacrolimus [Protoptic 0.1%] 1 applic TOPICAL BID 03/27/23 03/27/23 History Zolpidem Tartrate [Ambien] 10 mg PO HS PRN 03/27/23 03/27/23 History Allergies Allergy/AdvReac Type Severity Reaction Status Date / Time tramadol Allergy Vomiting Verified 03/27/23 22:19 Physical Exam Vitals: Vital Signs Temp Pulse Resp BP Pulse Ox 03/28/23 07:30 97.5 F L 68 18 144/96 96 03/28/23 06:12 64 18 139/95 98 03/28/23 05:00 61 18 117/69 98 03/28/23 00:00 66 18 121/84 100 03/27/23 23:00 66 18 135/97 100 03/27/23 21:52 63 18 130/80 98 03/27/23 17:24 97.6 F 77 16 134/89 98 Intake and Output 03/27/23 03/28/23 03/28/23 22:59 06:59 14:59 Other: Weight 67.132 kg Results 03/27/23 17:34 03/27/23 17:34 Cardiac Enzymes 03/27/23 03/27/23 03/27/23 Range/Units 17:34 17:34 22:39 AST 30 (14-36) U/L Troponin I <0.012 <0.012 (0.000-0.034) ng/mL 03/28/23 Range/Units 01:35 AST (14-36) U/L Troponin I <0.012 (0.000-0.034) ng/mL Coagulation 03/27/23 Range/Units 17:34 PT 11.0 (9.0-12.0) sec APTT 25.7 (22.0-30.0) sec CBC 03/27/23 Range/Units 17:34 WBC 6.3 (3.8-10.6) k/uL RBC 4.44 (3.80-5.40) m/uL Hgb 13.7 (11.4-16.0) gm/dL Hct 41.8 (34.0-46.0) % Plt Count 246 (150-450) k/uL Comprehensive Metabolic Panel 03/27/23 Range/Units 17:34 Sodium 138 (137-145) mmol/L Potassium 4.9 (3.5-5.1) mmol/L Chloride 105 (98-107) mmol/L Carbon Dioxide 27 (22-30) mmol/L BUN 21 H (7-17) mg/dL Creatinine 0.66 (0.52-1.04) mg/dL Glucose 163 H (74-99) mg/dL Calcium 9.3 (8.4-10.2) mg/dL AST 30 (14-36) U/L ALT 26 (4-34) U/L Alkaline Phosphatase 82 (38-126) U/L Total Protein 7.0 (6.3-8.2) g/dL Albumin 4.1 (3.5-5.0) g/dL Current Medications Generic Name Dose Route Start Last Admin Trade Name Freq PRN Reason Stop Dose Admin Acetaminophen 650 mg 03/27/23 21:20 03/28/23 07:51 Acetaminophen Tab 325 Mg Tab PO 650 mg Q6HR PRN Administration Mild Pain or Fever > 100.5 Aspirin 81 mg 03/28/23 09:00 Aspirin 81 Mg PO DAILY [facility] Atorvastatin Calcium 40 mg 03/28/23 09:00 Atorvastatin 40 Mg Tab PO DAILY [facility] Carvedilol 3.125 mg 03/27/23 21:30 03/27/23 21:44 Carvedilol 3.125 Mg Tab PO 3.125 mg BID-W/MEALS BERNICE Administration Ezetimibe 10 mg 03/28/23 09:00 Ezetimibe 10 Mg Tab PO DAILY [facility] Naloxone HCl 0.2 mg 03/27/23 21:20 Naloxone 0.4 Mg/Ml 1 Ml Vial IV Q2M PRN Opioid Reversal Nitroglycerin 0.4 mg 03/27/23 21:21 Nitroglycerin Sl Tabs 0.4 Mg Tab SUBLINGUAL Q5M PRN Chest Pain Zolpidem Tartrate 10 mg 03/27/23 21:52 03/27/23 22:12 Zolpidem 5 Mg Tab PO 10 mg HS PRN Administration Insomnia Intake and Output 03/27/23 03/28/23 03/28/23 22:59 06:59 14:59 Other: Weight 67.132 kg 03/27/23 17:34 03/27/23 17:34
--- NOTE | 2023-03-28 12:53 | CA ---
Stress Echo Report Karma Shannon Age: 62 Gender: F : 1960 Exam Date: 03/28/2023 11:44 Exam Location: [facility] Ht (in): 60 Wt (lb): 148 Ordering Physician: Anastasia Bowen Referring Physician: [id number] Director Of Reservations: Al Buchanan Technologist Procedure CPT: Indication: CP ICD-9 Codes: Rhythm: Patient History: Cardiac Medications: SEE CHART Medications in past 24 hours: Contrast: Lumason Stress Results Protocol: Arnaldo Total dose(mL): 5 Exercise Duration (min:sec): 9:[address] Depression (mm): Angina Score: Clark Score: METS: 10.5 Resting HR: 89 Resting BP: 127 / 83 Peak HR: 154 Peak BP: 193 / 114 Max Predicted HR: 160 96 % Max Predicted HR Target HR: 136 Double Product: [id number] Stress Summary: BP Response: Reason for Termination: Reached target heart rate or work-load Cardiac Symptoms: ASYMPTOMATIC ECG Analysis Resting ECG: Stress ECG: Arrhythmia: Echo Analysis Resting Echo: Peak Echo Analysis: MEASUREMENTS (Male/Female) Normal Values CONCLUSIONS Excellent exercise capacity and a Arnaldo protocol, 9 minutes 10 seconds Normal heart rate and blood pressure response No echocardiographic evidence for ischemia No ST segment abnormalities at peak exercise 0.[address] depression inferolaterally at recovery but without any symptoms or echocardiographic evidence for ischemia Dr. Dagoberto Eric MD (Electronically Signed) Final Date: 28 March 2023 12:52
[2023-03-28] MEDS: carvediloL 3.125 MG TAB PO SCH (13:45)
[2023-03-28 14:01] VITALS: BP 116/74; PULSE 82; TEMP 98.2
--- NOTE | 2023-03-28 16:42 | P.HPIM ---
History of Present Illness H&P Date: 03/28/23 This is a 62-year-old female who presented to the emergency department with complaints of chest pain that was pressure-like that was radiating down the arm and back of her neck and was relieved with nitro. Patient came to the ER for further evaluation denying any other symptoms and reports has been undergoing a lot of stress lately with home life. Patient does have a significant past medical history of chest pain, angina, hyperlipidemia, previous myocardial infarction, thyroid disorder, and anxiety. Patient denies any illicit drug use, smoking, or alcohol. Patient follows with Dr. Wang is primary care provider in the outpatient setting and her foundry equipment mechanic is Dr. Gilman. Patient was seen and evaluated by cardiology recommending stress echo. Labs reviewed and within normal limits and patient had troponins 3 that were negative. Chest x-ray showed no acute cardiopulmonary process and EKG was sinus rhythm. Patient was admitted under observation again for cardiology evaluation. Review Of Systems: Constitutional: No fever, no chills, no night sweats. No weight change. No w eakness, fatigue or lethargy. No daytime sleepiness. EENT: No headache. No blurred vision or double vision, no loss of vision. No loss of Hearing, no ringing in the ears, no dizziness. No nasal drainage or congestion. No epistaxis. No sore throat. Lungs: No shortness of breath, cough, no sputum production. No wheezing. Cardiovascular: Reports chest pain that has resolved, no lower extremity edema. No palpitations. No paroxysmal nocturnal dyspnea. No orthopnea. No lightheadedness or dizziness. No syncopal episodes. Abdominal: No abdominal pain. No nausea, vomiting. No diarrhea. No constipation. No bloody or tarry stools.. No loss of appetite. Genitourinary: No dysuria, increased frequency, urgency. No urinary retention. Musculoskeletal: No myalgias. No muscle weakness, no gait dysfunction, no frequent falls. No back pain. No neck pain. Integumentary: No wounds, no lesions. No rash or pruritus. No unusual bruising. No change in hair or nails. Neurologic: No aphasia. No facial droop. No change in mentation. No head injury. No headache. No paralysis. No paresthesia. Psychiatric: No depression. No anxiety. No mood swings. Endocrine: No abnormal blood sugars. No weight change. No excessive sweating or thirst. No cold intolerance. PHYSICAL EXAMINATION: GENERAL: The patient is alert and oriented x4, Well developed, well nourished. HEENT: Pupils are round and equally reacting to light. EOMI. no scleral icterus. No conjunctival pallor. Normocephalic, atraumatic. No pharyngeal erythema. No thyromegaly. CARDIOVASCULAR: S1 and S2 muffled PULMONARY: Breath sounds clear to auscultation bilaterally with no wheezing or rhonchi noted. ABDOMEN: soft. Nontender on exam. non-distended, normoactive bowel sounds. No palpable organomegaly. MUSCULOSKELETAL: No joint swelling or deformity. EXTREMITIES: No cyanosis, clubbing, or pedal edema. NEUROLOGICAL: Gross neurological examination did not reveal any focal deficits. SKIN: No rashes. Assessment: Chest pain, ruled out ACS History of previous myocardial infarction with stenting in 2016 Thyroid disorder Hyperlipidemia Anxiety GI prophylaxis DVT prophylaxis Full code Plan: Patient was admitted for cardiology evaluation maintained on telemetry monitoring. Cardiology evaluated this morning recommending stress echo which was negative for any ischemia and patient has been cleared by cardiology. Patient follow-up with primary care provider Dr. Wang as well as her primary foundry equipment mechanic Dr. Gilman outpatient Patient is medically stable and will continue on statin therapy along with other medications previously taking Patient will be discharged today. The impression and plan of care has been dictated by Nadja Dewey, nurse practitioner as directed. Dr. Mara MD I have performed a history and examination and MDM of this patient, discussed the same with the dictator, and agree with the dictator's assessment and plan as written ,documented as a scribe. Based on total visit time, I have performed more than 50% of the visit. Any additional findings or plans will be noted. Past Medical History Past Medical History: Chest Pain / Angina, Hyperlipidemia, Myocardial Infarction ([place]), Thyroid Disorder Additional Past Medical History / Comment(s): [place] 07/16/15 HAD HEART CATH with jonatan nt to LAD Last Myocardial Infarction Date:: 07/16/15 History of Any Multi-Drug Resistant Organisms: None Reported Past Surgical History: Appendectomy, Heart Catheterization With Stent, Joint Replacement, Orthopedic Surgery Additional Past Surgical History / Comment(s): ovarian cyst. tummy tuck. right hip repl. Past Anesthesia/Blood Transfusion Reactions: No Reported Reaction Date of Last Stent Placement:: 2015 Past Psychological History: Anxiety Smoking Status: Never smoker Past Alcohol Use History: None Reported Past Drug Use History: None Reported - Past Family History Father Family Medical History: Myocardial Infarction ([place]) Additional Family Medical History / Comment(s): AGE 42 FROM MASSIVE [place] Mother Family Medical History: Liver Disease Additional Family Medical History / Comment(s): NON ALCOHOLIC CIRRHIOSIS OF THE LIVER, WAS D/T ACETAMINOPHEN USE Medications and Allergies Home Medications Medication Instructions Recorded Confirmed Type Ezetimibe/Simvastatin [Vytorin 1 tab PO DAILY 01/07/14 03/27/23 History 10-80 mg Tablet] carvediloL [Coreg] 3.125 mg PO BID-W/MEALS #60 tab 07/19/15 03/27/23 Rx Aspirin 81 mg PO DAILY 01/10/22 03/27/23 History clonazePAM [KlonoPIN] 1 mg PO BID PRN 01/10/22 03/27/23 History Evolocumab [Repatha Syringe] 140 mg SQ Q14D 01/16/23 03/27/23 History Escitalopram [Lexapro] 10 mg PO DAILY 03/27/23 03/27/23 History Levothyroxine Sodium [Synthroid] 112 mcg PO DAILY 03/27/23 03/27/23 History Magnesium Oxide [Magnesium] 500 mg PO DAILY 03/27/23 03/27/23 History Nitroglycerin Sl Tabs [Nitrostat] 0.4 mg SUBLINGUAL Q5M PRN 03/27/23 03/27/23 History Tacrolimus [Protoptic 0.1%] 1 applic TOPICAL BID 03/27/23 03/27/23 History Zolpidem Tartrate [Ambien] 10 mg PO HS PRN 03/27/23 03/27/23 History Atorvastatin [Lipitor] 40 mg PO DAILY #30 tab 03/28/23 Rx Allergies Allergy/AdvReac Type Severity Reaction Status Date / Time tramadol Allergy Vomiting Verified 03/27/23 22:19 Physical Exam Vitals: Vital Signs Temp Pulse Resp BP Pulse Ox 03/28/23 11:10 97.8 F 68 18 139/93 98 03/28/23 07:30 97.5 F L 68 18 144/96 96 03/28/23 06:12 64 18 139/95 98 03/28/23 05:00 61 18 117/69 98 03/28/23 00:00 66 18 121/84 100 03/27/23 23:00 66 18 135/97 100 03/27/23 21:52 63 18 130/80 98 03/27/23 17:24 97.6 F 77 16 134/89 98 Intake and Output 03/27/23 03/28/23 03/28/23 22:59 06:59 14:59 Other: Weight 67.132 kg Results CBC & Chem 7: 03/27/23 17:34 03/27/23 17:34 Labs: Abnormal Lab Results - Last 24 Hours (Table) 03/27/23 Range/Units 17:34 BUN 21 H (7-17) mg/dL Glucose 163 H (74-99) mg/dL Thrombosis Risk Factor Assmnt - DVT/VTE Prophylaxis DVT/VTE Prophylaxis: Low risk, early ambulation encouraged Assessment and Plan Time with Patient: Greater than 30
== END 2023-03-28 13:48 | disposition home or self-care (01) ==
LOC: EC 17:17 → 6NMEDSUR 21:23
PROVIDERS: ADMIT Internal Medicine; ATTEND Internal Medicine
DX: R07.89 Other chest pain (principal); I25.10 Atherosclerotic heart disease of native coronary artery without angina pectoris; E78.5 Hyperlipidemia, unspecified; I08.1 Rheumatic disorders of both mitral and tricuspid valves; E03.9 Hypothyroidism, unspecified; I25.2 Old myocardial infarction; F41.9 Anxiety disorder, unspecified; Z79.82 Long term (current) use of aspirin; Z79.890 Hormone replacement therapy; Z79.899 Other long term (current) drug therapy; Z88.5 Allergy status to narcotic agent; Z95.5 Presence of coronary angioplasty implant and graft; Z90.49 Acquired absence of other specified parts of digestive tract; Z96.641 Presence of right artificial hip joint; Z98.890 Other specified postprocedural states; Z82.49 Family history of ischemic heart disease and other diseases of the circulatory system; Z83.79 Family history of other diseases of the digestive system
CPT/HCPCS: 99285; 36415; 93005; 93351; 80053; 83735; 84484 ×2; 85025; 85610; 85730; 71046; G0378 ×2; Q9950

== ENCOUNTER → 2023-10-16 | Outpatient (CLI) | payer BC ==
--- NOTE | 2023-10-20 19:23 | MM ---
Reason for Exam: Screening (asymptomatic). Last mammogram was performed 1 year(s) and 10 month(s) ago. Patient History: Menarche at age 13. First Full-Term at age 28. Postmenopausal. Risk Values: Lexi 5 year model risk: 1.8%. NCI Lifetime model risk: 8.9%. Prior Study Comparison: 10/23/2020 Bilateral Screening Mammogram, [facility]. 01/10/2022 Bilateral Screening Mammogram, [facility]. Tissue Density: There are scattered areas of fibroglandular density. Findings: Analyzed By CAD. Medial asymmetric density in the right breast is unchanged. There is no suspicious group of microcalcifications or new suspicious mass in either breast. Overall Assessment: Benign, BI-RAD 2 Management: Screening Mammogram of both breasts in 1 year. . Patient should continue monthly self-breast exams. A clinical breast exam by your physician is recommended on an annual basis. This exam should not preclude additional follow-up of suspicious palpable abnormalities. Note on Lexi scores and lifetime risk: 1. A Lexi score greater than 3% is considered moderate risk. If this is the case, consider specialist referral to assess eligibility for a risk reducing agent. 2. If overall lifetime risk for the development of breast cancer is 20% or higher, the patient may qualify for future screening with alternating mammogram and breast MRI. Electronically signed and approved by: Kate Stafford M.D. Radiologist
== END | disposition home or self-care (01) ==
LOC: RADMAMWWP 14:07
PROVIDERS: ATTEND Obstetrics & Gynecology
DX: Z12.31 Encounter for screening mammogram for malignant neoplasm of breast (principal); Z78.0 Asymptomatic menopausal state
CPT/HCPCS: 77063; 77067

== ENCOUNTER → 2024-02-09 | Outpatient (CLI) | payer BC ==
[2024-02-09 16:26] LABS: ALT 30 U/L (8-44); AST 26 U/L (13-35); Chol/HDL Ratio 1.91 Ratio; LDL Cholesterol,Calculated 28.1 mg/dL (0.0-131.0); VLDL Calculation 17.22 mg/dL (5.00-40.00)
== END | disposition home or self-care (01) ==
LOC: LABWHC1 09:14
PROVIDERS: ATTEND Internal Medicine Interventional Cardiology
DX: E78.2 Mixed hyperlipidemia (principal)
CPT/HCPCS: 36415; 80061; 84450; 84460